=== PATIENT | female | born 1975 | race Caucasian/White ===

== ENCOUNTER 2025-05-16 12:28 | Emergency (ER) | payer MEDICAID, SELFPAY ==
[2025-05-16 13:29] VITALS: BP 154/99; PULSE 87; RESP 18; TEMP 36.6; O2SAT 99; BMI 23.6
--- NOTE | 2025-05-16 13:36 | PD.EDANIML ---
ED Animal Bite RME/HPI General Chief Complaint: Animal Bite Stated Complaint: DOG BITE RIGHT HAND / CHEST, LEFT LEG Time Seen by Provider: 05/16/25 13:32 Arrival date/time: 05/16/25 12:28 50-year-old homeless female presents to the emergency department today stating that she was bitten by a dog a few days ago patient reports she was bitten in the right breast, left upper leg, right hand. Patient has not sought out care yet. Limitations: no limitations Related Data Previous Rx's ?Medication ?Instructions ?Recorded amoxicillin 875 mg-potassium 1 tab PO BID 10 days #20 tabs 05/16/25 clavulanate 125 mg tablet bacitracin 500 unit/gram topical 1 applic topical TID 7 days #28.4 05/16/25 ointment grams ibuprofen 600 mg tablet 600 mg PO Q6H #30 tabs 05/16/25 Allergies Allergy/AdvReac Type Severity Reaction Status Date / Time NKA* Allergy Uncoded 05/16/25 12:32 Review of Systems Review of Systems Systems Reviewed: All systems reviewed, normal except as documented Constitutional Constitutional: Reports system reviewed and no additional complaints, except as documented, Denies fever(s) and Denies headache(s) Eyes Eyes: Reports system reviewed and no additional complaints, except as documented and Denies blurry vision ENT Ears, Nose, Mouth, and Throat: Reports system reviewed and no additional complaints, except as documented, Denies headache(s), Denies nasal congestion and Denies nasal discharge Cardiovascular Cardiovascular: Reports system reviewed and no additional complaints, except as documented, Denies chest pain and Denies dyspnea Respiratory Respiratory: Reports system reviewed and no additional complaints, except as documented, Denies chest congestion, Denies cough and Denies dyspnea Gastrointestinal Gastrointestinal: Reports system reviewed and no additional complaints, except as documented and Denies abdominal pain Integumentary/Breasts Skin/Breast: Reports system reviewed and no additional complaints, except as documented, Denies rash and Reports other (Dog bite right breast, left leg thigh, right hand) Neurologic Neurologic: Reports system reviewed and no additional complaints, except as documented, Reports as per HPI and Denies headache(s) Past Medical History Past Medical History NEUROLOGIC: Negative Cerebrovascular Accident, Alzheimer's Disease or Meningitis CARDIAC: Negative Myocardial Infarction, Angina, Atherosclerotic Heart Disease or Congestive Heart Failure RESPIRATORY: Negative Chronic Obstructive Pulmonary Disease (COPD), Emphysema or Cystic Fibrosis GASTROINTESTINAL: Negative Gastrointestinal Disorders, Liver Cancer or Pancreatic Cancer GENITOURINARY: Negative Genitourinary Disorders or Renal Disease MUSCULOSKELETAL: Negative Muscular Dystrophy or Bone Cancer ENT: Negative Cataracts ENDOCRINE: Negative Endocrine Disorders, Diabetes Mellitus Type 1 or Diabetes Mellitus Type 2 PSYCHO/SOCIAL: Negative Psychiatric Problems OTHER HISTORY: Negative Down Syndrome or Developmental Delay Surgical History SURGICAL: Positive Section (x3) Social History SMOKING STATUS: Current every day smoker SUBSTANCE USE: does not use ED Exam General Limitations: Present no limitations General appearance: Present alert and in no apparent distress Head Head exam: Present atraumatic Eye Eye exam: Present normal appearance, PERRL and EOMI ENT ENT exam: Present normal exam, normal oropharynx and mucous membranes moist Neck Neck exam: Present normal inspection, full ROM and trachea midline Chest Chest inspection: Present normal inspection and symmetric chest wall rise Respiratory Respiratory exam: Present normal lung sounds bilaterally Cardiovascular Cardiovascular exam: Present regular rate, normal rhythm and normal heart sounds Abdominal Exam Abdominal exam: Present soft and normal bowel sounds Extremities Exam Extremities exam: Present normal inspection and full ROM Back Exam Back exam: Present normal inspection and full ROM Neurological Exam Neurological exam: Present alert, oriented X3 and CN II-XII intact Psychiatric Psychiatric exam: Present normal affect and normal mood Skin Skin exam: Present warm, dry and other (Dog bite right breast, left leg thigh, right hand) Course Quality Measures none Orders Category Date Time Status Ibuprofen Tab [Motrin Tab] Med 05/16/25 13:36 Discontinued 600 mg PO X1 ONE Lidocaine 1% 20 ml [Xylocaine 1% 20 ML] Med 05/16/25 13:36 Discontinued 2.1 ml INFL X1 ONE cefTRIAXone [Rocephin] Med 05/16/25 13:36 Discontinued 1,000 mg IM X1 ONE Vital Signs Vital signs: Vital Signs Temperature 98 F 05/16/25 13:29 Pulse Rate 87 05/16/25 13:29 Respiratory Rate 18 05/16/25 13:29 Blood Pressure 154/99 H 05/16/25 13:29 Pulse Oximetry (%) 99 05/16/25 13:29 Oxygen Delivery Method Room Air 05/16/25 13:29 O2 saturation 99% room air wnl Animal Bite MDM Narrative MDM Narrative:: 50-year-old homeless female presents to the emergency department today stating that she was bitten by a dog a few days ago patient reports she was bitten in the right breast, left upper leg, right hand. Patient has not sought out care yet. On exam patient well-appearing patient does not appear ill or toxic no acute distress Patient does have mild swelling to the right hand and a superficial dog bite. Patient also has dog bite to the left upper leg posterior aspect patient also has some bruising to the breast. Patient given Rocephin here discharge home with antibiotics tetanus updated Patient struck to return tomorrow for repeat Rocephin injection for the infection to the right hand. Patient does have full range of motion of all digits but does have swelling which is concerning. 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 Patient data External records reviewed:: [facility] previous records Clinical information provided by:: patient Social determinants that could affect healthcare access:: housing Patient has the following chronic illnesses:: Homelessness, drug abuse How is presenting disease/condition affected by chronic disease/condition?: no chronic disease Evaluation data The following diagnostics were reviewed and interpreted by me:: other (specify) (N/A) Lab and/or radiology exams considered but not ordered:: Considered not indicated Interpretation Summary: N/A Medications / Prescriptions Medications or Prescriptions considered but not ordered:: Given Medication administrations:: Medication Administration History Discontinued Medications Ceftriaxone Sodium (Ceftriaxone Sod Inj 1,000 Mg Vial) 1,000 mg IM X1 ONE Stop: 05/16/25 13:37 Last Admin: 05/16/25 14:09 Dose: 1,000 mg Documented By: Ibuprofen (Ibuprofen Tab 600 Mg Tablet) 600 mg PO X1 ONE Stop: 05/16/25 13:37 Last Admin: 05/16/25 14:09 Dose: 600 mg Documented By: Lidocaine HCl (Lidocaine Hcl 1% 20 Ml Vial) 2.1 ml INFL X1 ONE Stop: 05/16/25 13:37 Last Admin: 05/16/25 14:09 Dose: 2.1 ml Documented By: Given Consultations Consultation(s) initiated? (list below): No Diagnosis Differential diagnosis animal bite: bite by animal, dog bite and rabies contact Most likely diagnosis given after review of the tests above:: Dog bite Admission Indicated Admission indicated?: not indicated Admission Request Was there a request for admission?: No Disposition Plan Disposition Plan: Discharge Discharge Attestation Discharge Attestation: The patient and all family members were given an opportunity to ask questions and understood the discharge instructions. Discharge instructions specifically effects, indications for sooner follow up or return to the emergency department, and the expected course of current diagnosis. Patient condition: Stable Discharge Plan Plan Patient Disposition: HOME (Self Care) Discharge Disposition comment: Stable Prescriptions/Referrals Prescriptions/Med Rec: New bacitracin 500 unit/gram ointment 1 applic topical TID 7 Days Qty: 28.4 0RF amoxicillin-pot clavulanate 875-125 mg tablet 1 tab PO BID 10 Days Qty: 20 0RF ibuprofen 600 mg tablet 600 mg PO Q6H Qty: 30 0RF Problem List Clinical Impression: Dog bite, Swelling of right hand, Contusion of breast, right Patient/Caregiver Discharge Instructions Education Materials: ED Dog Bite Additional Instructions: Please return tomorrow for repeat Rocephin injection for worsening symptoms return immediately Print Language: Pashto Stand Alone Forms: Josefina Award Info., Patient Portal Info Letter Vaccines Vaccines Given During Stay: TDaP PA/[employer]MI[employer] Supervising Physician PA/[employer]MI[employer] TE[employer]ER Supervising Physician: Dr presley
[2025-05-16] MEDS: cefTRIAXone SOD INJ 1,000 MG VIAL 1000 MG IM (14:09)
[2025-05-16] MEDS: IBUPROFEN TAB 600 MG TABLET PO (14:09)
[2025-05-16] MEDS: LIDOCAINE HCL 1% 20 ML VIAL 2.1 ML INFL (14:09)
== END 2025-05-16 15:31 | disposition home or self-care (01) ==
LOC: SERX 15:01
PROVIDERS: Emergency Provider Emergency Medicine
DX: S20.01XA Contusion of right breast, initial encounter (principal); M79.89 Other specified soft tissue disorders; W54.0XXA Bitten by dog, initial encounter; Z59.00 Homelessness unspecified
CPT/HCPCS: 96372; 99283; J0696; J3490; A9270